=== PATIENT | male | born 1945 | race Caucasian/White ===

== ENCOUNTER → 2018-10-27 15:59 | Outpatient (CLI) | payer MEDICARE ==
[2010-07-09 00:42] VITALS: BMI 23.1
[~2018-10-27 15:59] MED LIST: JANTOVEN4 MG PO
== END | disposition home or self-care (01) ==
LOC: D.CT 15:59
PROVIDERS: ATTEND Family Medicine
DX: I73.9 Peripheral vascular disease, unspecified (principal)

== ENCOUNTER 2018-10-27 18:37 | Emergency (ER) | payer MEDICARE ==
[~2018-10-27] VITALS: Ht 188 cm; Wt 95.5 kg
[2018-10-27 18:41] VITALS: BP 157/86; Ht 188 cm; Wt 95.5 kg
[2018-10-27] MEDS ORDERED: JANTOVEN4 MG PO (18:44)
== END 2018-10-27 20:00 | disposition home or self-care (01) ==
LOC: D.ER 18:37
DX: Z00.00 Encounter for general adult medical examination without abnormal findings (principal)

== ENCOUNTER 2018-11-23 06:40 | Outpatient (CLI) | payer MEDICARE ==
[~2018-11-23] VITALS: Ht 185.4 cm; Wt 100.0 kg
--- NOTE | ~2018-11-23 | HEMODYNAMI ---
PATIENT:DAVID CABRERA MEDICAL RECORD: [id number] : 47 LOCATION:[facility] ADMISSION DATE: 11/23/18 Generatedon:11/23/201810:59 Patient name: DAVID CABRERA Patient #: [id number] SSN: DO B: 1945 Date of study: 11/23/2018 Page: Of Hemodynamic Procedure Report Patient Data Patient Demographics Procedure consent was obtained First Name: DAVID Gender: Male Last Name: DEBORAH : 1945 [facility] Initial: JOSE Age: 73 year(s) Patient #: [id number] Race: Unknown Additional ID: [id number] Contact details [address]: [address] [place] [address] [address] State: [place] City: [place] Zip code: [address] Past Medical History Allergies: No known allergies Admission Admission Data Admission Date: 11/23/2018 Admission Time: 6:40 Procedure Procedure Types Cath Procedure Peripheral Cath Diagnostic Procedure Abd/Extremity Extremities Right Lower Ext Arterio Procedure Description Procedure Date Procedure Date: 11/23/2018 Procedure Start Time: 10:00 Procedure End Time: 10:51 Procedure Staff Name Function Jose Ramon Lama RT Scrub Elmer Crawley MD Performing Physician Belinda Montgomery RN Nurse Teresa Carbajal RN Nurse JOSEPH GUILLAUME RT Monitor Procedure Data Cath Procedure Fluoroscopy Diagnostic fluoroscopy Total fluoroscopy Time: 6.6 time: 6.6 min min Diagnostic fluoroscopy Total fluoroscopy dose: 118 dose: 118 mGy mGy Contrast Material Contrast Material Type Amount (ml) Isovue 300 45 Entry Location Entry Primary Successful Side Size Upsize Upsize Entry Closure Succes sful Closure Location (Fr) 1 (Fr) 2 (Fr) Remarks Device Remarks Femoral Right 6 Fr Mynx artery Long Copier Field Service Technician 6Fr/7Fr Diagnostic catheters Device Type Used For End Catheter Placement DIAGNOSTIC IMT 5Fr Catheter ([id number]) Procedure Medications Medication Administration Route Dosage Heparin Flush Bag added to field 2 bags (1000units/500ml NS) Lidocaine 1% added to field 20 Fentanyl I.V. 50 mcg Versed I.V. 1 mg Heparin Bolus I.V. 5000 units Nitroglycerin IC/IA I.A. 300 mcg Versed I.V. 0.5 mg Fentanyl I.V. 25 mcg Versed I.V. 0.5 mg Fentanyl I.V. 25 mcg Hemodynamics Rest Heart Rate: 67 (bpm) Snapshots Pre Cath Intra NCS Post Cath Vital Signs Time Heart Resp SPO2 etCO2 NIBP (mmHg) Rhythm Pain Sedation Rate (ipm) (%) (mmHg) Status Level (bpm) 9:45:40 71 23 92 12.7 135/78(112) NSR 0 (11) 10(A) , No pain 9:49:52 65 20 91 0 130/83(106) NSR 0 (11) 10(A) , No pain 9:54:06 67 20 95 26.2 128/77(121) NSR 0 (11) 10(A) , No pain 9:58:20 65 13 95 26.2 136/72(114) NSR 0 (11) 8(A) , No pain 10:02:36 71 17 95 24.7 123/72(103) NSR 0 (11) 8(A) , No pain 10:06:45 69 17 95 27.7 122/74(101) NSR 0 (11) 8(A) , No pain 10:10:57 73 18 94 26.2 123/66(101) NSR 0 (11) 8(A) , No pain 10:15:09 69 18 94 28.5 123/72(104) NSR 0 (11) 8(A) , No pain 10:19:21 64 18 94 26.2 127/73(105) NSR 0 (11) 8(A) , No pain 10:23:35 72 18 94 25.5 111/69(90) NSR 0 (11) 8(A) , No pain 10:27:43 71 19 94 25.5 117/69(96) NSR 0 (11) 8(A) , No pain 10:31:53 71 15 94 28.5 112/66(93) NSR 0 (11) 8(A) , No pain 10:36:01 67 15 94 35.9 124/68(85) NSR 0 (11) 8(A) , No pain 10:40:13 70 19 94 25.5 118/68(100) NSR 0 (11) 8(A) , No pain 10:44:25 68 18 94 25.5 115/62(98) NSR 0 (11) 8(A) , No pain 10:48:39 74 17 18.7 104/55(83) NSR 0 (11) 8(A) , No pain Medications Time Medication Route Dose Verified Delivered Reason Notes Effec tiveness by by 9:52:11 Heparin Flush added 2 Elmer Payne used for Bag to bags Misbah Crawley procedure (1000units/500ml field MD OROZCO NS) 9:52:27 Lidocaine 1% added 20ml Elmer Payne used for to vial Misbah Misbah procedure field MD OROZCO 9:58:07 Fentanyl I.V. 50 Elmer Moore for mcg Misbah Hansoner RN sedation 9:59:02 Versed I.V. 1 mg Elmer Moore for Misbah Carbajal RN sedation 10:08:47 Heparin Bolus I.V. 5000 Elmer Moore used for units Misbahcynthia Hansoner customer support analyst 10:22:27 Nitroglycerin I.A. 300 Elmer Payne used for IC/IA mcg Misbahcynthia Crawley procedure MD OROZCO 10:24:47 Versed I.V. 0.5 Elmer Moore for mg Misbah Carbajal RN sedation 10:24:59 Fentanyl I.V. 25 Elmer Moore for mcg Misbah Carbajal RN sedation 10:40:01 Versed I.V. 0.5 Elmer Moore for mg Misbah Carbajal RN sedation 10:40:13 Fentanyl I.V. 25 Elmer Moore for mcg Misbah Carbajal RN sedation Procedure Log Time Note 9:14:23 Jose Ramon Lama RT (R) (CV) sent for patient. Start room use. 9:14:26 Time tracking: Regular hours (M-F 7:00 - 5:00) 9:14:34 Plan of Care:Hemodynamics will remain stable., Cardiac rhythm will remain stable., Comfort level will be maintained., Respiratory function will remain adequate., Patient/ family verbilizes understanding of procedure., Procedure tolerated without complication., Recovers from procedure without complications.. 9:21:15 Patient received from Outpatients to IR Alert and oriented. Nasreenferred to table in Supine position. 9:21:40 Signed procedure consent form obtained from patient. 9:21:46 Correct patient and procedure confirmed by team. 9:21:57 ECG and BP/O2 sat monitors applied to patient. 9:22:08 - 9:22:15 H&P Date Dictated: 11/23/2018 H&P Addendum completed by physician on day of procedure. (MUST COMPLETE FOR ALL OUTPATIENTS). 9:22:19 Pre-procedure instructions explained to patient. 9:22:20 Pre-op teaching completed and patient verbalized understanding. 9:22:47 Family in patients room. 9:22:50 Patient NPO since Midnight. 9:23:51 Patient allergic to No known allergies 9:23:54 Is the patient allergic to Iodine/contrast media? No. 9:23:57 Is patient on blood thinner?Yes. Coumadin last dose 11/19/18 9:25:07 Patient diabetic? No. 9:25:09 - 9:25:15 Previous problem with sedation/anesthesia? No ? 9:25:16 Snore? Yes 9:25:17 Sleep apnea? No 9:25:19 Deviated septum? No 9:25:20 Opens mouth fully? Yes 9:25:21 Sticks out tongue? Yes 9:25:33 Dentures? Yes In 9:25:34 - 9:27:53 IV patent on arrival in right hand with 0.45%NaCl at KVO. 9:28:16 Left groin area was prepped with chlora-prep and draped in sterile fashion 9:28:21 Sharps counted by scrub and verified by Rg 9:28:21 Alarms reviewed by Suzanne Light 9:28:25 - 9:44:38 Vital chart was started 9:44:39 Baseline sample Acquired. 9:44:44 Full Disclosure recording started 9:44:52 - 9:46:14 Use device set IR Diagnostic 9:46:18 Sterile Angiographic Pack opened to sterile field. 9:46:19 Bag Decanter (2001S) opened to sterile field. 9:46:20 Tegaderm 4 x 4 (1626W) opened to sterile field. 9:46:21 CHOICE PT Extra Support J 300cm guide wire ([id number]) opened to steril e field. 9:46:22 SHEATH 6FR Destination (RSR01) opened to sterile field. 9:46:47 A DIAGNOSTIC IMT 5Fr Catheter ([id number]) was advanced over the wire an d used for . 9:46:50 Micropuncture VSI 4FR kit opened to sterile field. 9:46:52 ALLAN 260 wire ([id number]) opened to sterile field. 9:46:52 BENTSON 145cm wire (Q52003) opened to sterile field. 9:46:53 SHEATH 5FR [place] (ODD766) opened to sterile field. 9:52:11 Heparin Flush Bag (1000units/500ml NS) 2 bags added to field was administered by Elmer Crawley MD; used for procedure; 9:52:27 Lidocaine 1% 20ml vial added to field was administered by Elmer baker MD; used for procedure; 9:52:41 - 9:54:59 Physician arrived 9:55:22 --------ALL STOP TIME OUT------ 9:55:32 Final Timeout: patient, procedure, and site verified with staff and physician. All members of the team are in agreement. 9:55:36 Left groin site verified by team. 9:55:40 Fire Safety Assessment: A--An alcohol-based skin anteseptic being used preoperatively., C--Open oxygen or nitrous oxide is being used. 9:55:53 2) 60-89 Mildly reduced kidney function, and other findings (as for stage 1) point to kidney disease. 9:58:07 Fentanyl 50 mcg I.V. was administered by Teresa Carbajal RN; for sedation; 9:58:24 Procedure started. 9:59:02 Versed 1 mg I.V. was administered by Teresa Carbajal RN; for sedation; 10:00:37 Local anesthetic to left femerol artery with Lidocaine 1% by Elmer Crawley MD.INITIAL ACCESS ONLY 10:04:08 Access obtained with 4Fr micropunture. 10:05:05 A 6 Fr Long sheath was inserted into the Right Femoral artery 10:08:47 CXI Catheter 90cm ([id number]) opened to sterile field. 10:08:47 Heparin Bolus 5000 units I.V. was administered by Teresa Carbajal RN; used for procedure; 10:08:57 [facility] .035 145 glide wire (X00146) opened to sterile field. 10:12:42 INFLATOR BasixTOUCH (VB0417) opened to sterile field. 10:17:33 Balloon Inflation number: 1 A CHOCOLATE 4.0 x 40 x 135 balloon ([id number]) was prepped and advanced, then inflated to 9 MARGARITA. 10:18:07 Hawkone Medium Atherectomy System (H1-M) opened to sterile field. 10:22:27 Nitroglycerin IC/IA 300 mcg I.A. was administered by Elmer Crawley MD; used for procedure; 10:24:47 Versed 0.5 mg I.V. was administered by Teresa Carbajal RN; for sedation; 10:24:59 Fentanyl 25 mcg I.V. was administered by Teresa Carbajal RN; for sedation; 10:29:24 SHEATH 6FR [place] (CGJ684) opened to sterile field. 10:29:35 Inflate balloon Inflation number: 1 A INPACT ADMIRAL 6X60 ([id number] ) was prepped and advanced, then inflated to 8 MARGARITA. 10:39:18 Inflate balloon Inflation number: 1 A CHOCOLATE 4.0 x 40 x 135 balloon ([id number]) was prepped and advanced, then inflated to 12 MARGARITA. 10:40:01 Versed 0.5 mg I.V. was administered by Teresa Carbajal RN; for sedation; 10:40:05 MYNX TIMBER FRAMER 6FR/7FR (CB2778) opened to sterile field. 10:40:13 Fentanyl 25 mcg I.V. was administered by Teresa Carbajal RN; for sedation; 10:43:28 Sheath removed intact; hemostasis achieved with Mynx Copier Field Service Technician 6Fr/7Fr to th e Right Femoral artery. 10:43:45 Fluoroscopy time 06.60 minutes. 10:44:05 Procedure ended.(Physican Out) 10:44:28 Fluoroscopy dose: 118 mGy 10:44:28 Flurop Dose total: 118 10:44:43 Contrast amount:Isovue 300 45ml. 10:44:46 Sharps counted by scrub and verified by R.N. 10:44:58 Insertion/operative site no bleeding no hematoma. 10:45:05 Post-op/insertion site Right Femoral artery dressed using a 4 x 4 and Tegaderm. 10:49:05 Post procedure instruction explained to patient.Patient verbalizes understanding. 10:51:05 Procedure and supply charges have been captured, reviewed, submitted an d are correct. 10:51:46 Vital chart was stopped 10:51:48 See physician's report for complete and final results. 10:51:54 Patient transfered to Outpatients with Bed. 10:51:58 Full Disclosure recording stopped 10:51:58 Procedure ended. Intervention Summary Intervention Notes Time ActionType Lesion and Equipment Used Action# Pressure Duration Attributes 10:17:33 Inflate Undefined1 CHOCOLATE 4.0 x 1 9 00:00 balloon 40 x 135 balloon ([id number]) 10:29:35 Inflate Mid INPACT ADMIRAL 1 8 00:01 balloon Femoral, 6X60 Right ([id number]) 10:39:18 Inflate Undefined2 CHOCOLATE 4.0 x 1 12 00:00 balloon 40 x 135 balloon ([id number]) Device Usage Item Name Manufacture Quantity Catalog Number Hospital Part Current Minimal Lot# / Charge Number Stock Stock Serial# Code Sterile Cardinal 1 [id number] [id number] 5 Angiographic Pack Health Bag Decanter Microtek 1 2001S 427977 99633 709648 5 () Medical Inc. Tegaderm 4 x 4 3M 1 1626W 625510 038252 142087 5 (1626W) CHOICE PT Extra Ramsey 1 [id number] 354648 225151 308664 5 [id number] Support J 300cm Scientific guide wire ([id number]) SHEATH 6FR Terumo 1 RSR01 254972 70597 142110 5 Destination (RSR01) DIAGNOSTIC IMT Ramsey 1 [id number] 382134 578336 17540 5 [id number] 5Fr Catheter Scientific ([id number]) Micropuncture VSI VSI VASCULAR 1 7266V 446474 057614 5 4FR kit SOLUTIONS BENTSON 145cm [employer] 1 D47842 927163 027980 5 wire (X76999) ALLAN 260 wire [facility] 1 N51855 173818 66395 160968 5 (V52190) SHEATH 5FR Terumo 1 ZNI767 445414 710116 384972 5 [place] (PXV903) CXI Catheter 90cm Cook [facility] 1 U11772 919875 840782 949521 5 (M02092) ROADRUNNER .035 [facility] 1 Y40003 245511 708251 220215 5 145 glide wire (K27609) INFLATOR Merit 1 OD4575 600834 736445 101567 5 [employer] [facility] (EP8082) CHOCOLATE 4.0 x Medtronic 2 [id number] 388057 64128 312713 5 40 x 135 balloon O ([id number]) TW Hawkone Medium Medtronic 1 H1-M 505530 5222408 5 5 [id number] Atherectomy System (H1-M) SHEATH 6FR Terumo 1 ZQU682 857606 861813 667063 40 [place] (DVH171) INPACT ADMIRAL Medtronic 1 [id number] 156902 050038 936495 1 6X60 ([id number]) MYNX TIMBER FRAMER 6FR/7FR Access 1 BL1506 648734 435022 5 ([id number]) Closure Signature Audit [place] Stage Time Signature Unsigned Intra-Procedure 11/23/2018 JOSEPH GUILLAUME RT JOSEPH GUILLAUME RT (R) 10:54:19 AM (R) 11/23/2018 10:56:12 AM Intra-Procedure 11/23/2018 JOSEPH GUILLAUME RT 10:59:32 AM (R) Signatures Monitor : JOSEPH GUILLAUME RT Signature : Date : Time : [facility] [address] [place] [address]
[2018-11-23 06:59] LABS: BASOPHILS 0.5 % (0-2); EOSINOPHILS 5.4 % (0-7); HEMATOCRIT 45.9 % (42.0-54.0); HEMOGLOBIN 15.9 g/dL (13.5-17.5); LYMPHOCYTES 21.4 % (15-50); MCH 31.8 pg (26.0-34.0); MCHC 34.6 g/dL (31.0-37.0); MCV 91.8 fL (80.0-100.0); MEAN PLATELET VOLUME 9.6 fL (7.4-10.4); MONOCYTES 13.6 % (2-11); NEUTROPHILS 58.1 % (40-80); PLATELET COUNT 225 10x3/uL (130-400); RDW 14.3 % (11.5-14.5); WBC 11.3 10x3/uL (4.8-10.8)
[2018-11-23 07:04] LABS: ANION GAP 12.8 mmol/L (8-16); CALCIUM 8.6 mg/dL (8.5-10.1); CARBON DIOXIDE 25.3 mmol/L (21.0-32.0); CREATININE - SERUM 1.1 mg/dL (0.6-1.3); POTASSIUM - SERUM 4.1 mmol/L (3.5-5.1)
[2018-11-23 07:19] LABS: APTT 29.4 SECONDS (22.8-39.4)
[2018-11-23 07:20] LABS: INR 1.08 (0.85-1.17); PROTIME 13.5 SECONDS (11.6-15.0)
[2018-11-23 07:42] VITALS: Ht 185.4 cm; Wt 100.0 kg
[2018-11-23] MEDS ORDERED: FLOMAX0.4 MG PO (07:55)
[2018-11-23] MEDS ORDERED: NORVASC5 MG PO (08:07)
[2018-11-23] MEDS ORDERED: LIPITOR20 MG PO (08:08)
--- NOTE | 2018-11-23 13:44 | NUR ---
VITAL SIGNS DOCUMENTED ON POST PROCEDURE SHEET.
--- NOTE | 2018-11-23 13:46 | NUR ---
RADIOLOGY REPORTS SMALL PNEUMOTHRAX, WILL RECHECK AT 1530. PT REPORTS SMALL PAIN AT INSERTION SITE THAT HAS DECREASED. VSS 178/72, 63, 18, 94% ON RA
--- NOTE | 2018-11-23 15:52 | NUR ---
1300 IV DC'D. CATHETER INTACT. NO BLEEDING AT SITE. BANDAID APPLIED
== END 2018-11-23 15:19 | disposition home or self-care (01) ==
LOC: D.SP 06:40 → D.RAD 09:00 → D.SP 15:19
PROVIDERS: ATTEND Radiology Diagnostic Radiology
DX: I73.9 Peripheral vascular disease, unspecified (principal)

== ENCOUNTER 2018-12-06 06:33 | Outpatient (CLI) | payer MEDICARE ==
[~2018-12-06] VITALS: Ht 185.4 cm; Wt 90.9 kg
--- NOTE | ~2018-12-06 | HEMODYNAMI ---
PATIENT:DAVID CABRERA MEDICAL RECORD: [id number] : 47 LOCATION:[facility] ADMISSION DATE: 12/06/18 Generatedon:12/06/201811:20 Patient name: DAVID CABRERA Patient #: [id number] SSN: DO B: 1945 Date of study: 12/06/2018 Page: Of Hemodynamic Procedure Report Patient Data Patient Demographics Procedure consent was obtained First Name: DAVID Gender: Male Last Name: DEBORAH : 1945 [facility] Initial: JOSE Age: 73 year(s) Patient #: [id number] Race: Unknown Additional ID: [id number] Contact details [address]: [address] [place] [address] [address] State: [place] City: [place] Zip code: [address] Past Medical History Allergies: No known allergies Admission Admission Data Admission Date: 12/06/2018 Admission Time: 6:33 Procedure Procedure Types Cath Procedure Peripheral Cath Diagnostic Procedure Abd/Extremity Extremities Left Lower Ext Arterio Procedure Description Procedure Date Procedure Date: 12/06/2018 Procedure Start Time: 9:40 Procedure Staff Name Function Jose Ramon Lama RT Scrub Elmer Crawley MD Performing Physician Belinda Montgomery RN Nurse Teresa Carbajal RN Nurse JOSEPH GUILLAUME RT Monitor Procedure Data Cath Procedure Fluoroscopy Diagnostic fluoroscopy Total fluoroscopy Time: 8.5 time: 8.5 min min Entry Location Entry Primary Successful Side Size Upsize Upsize Entry Closure Succes sful Closure Location (Fr) 1 (Fr) 2 (Fr) Remarks Device Remarks Femoral Right 5 Fr 6 Fr 6 Fr Mynx artery Long Short Veneer Redrier 6Fr/7Fr Diagnostic catheters Device Type Used For End Catheter Placement DIAGNOSTIC IMT 5Fr Catheter ([id number]) Procedure Medications Medication Administration Route Dosage Heparin Flush Bag added to field 2 bags (1000units/500ml NS) Lidocaine 1% added to field 20 Versed I.V. 1 mg Fentanyl I.V. 50 mcg Heparin Bolus I.V. 5000 units Nitroglycerin IC/IA I.A. 250 mcg Versed I.V. 0.5 mg Fentanyl I.V. 25 mcg Heparin Bolus I.V. 2000 units Versed I.V. 0.5 mg Nitroglycerin IC/IA I.A. 300 mcg Hemodynamics Rest Heart Rate: 58 (bpm) Snapshots Pre Cath Intra NCS Post Cath Vital Signs Time Heart Resp SPO2 etCO2 NIBP (mmHg) Rhythm Pain Sedation Rate (ipm) (%) (mmHg) Status Level (bpm) 9:08:40 60 21 94 24.7 133/70(110) NSR 0 (11) 10(A) , No pain 9:13:00 61 13 93 27 139/74(114) NSR 0 (11) 10(A) , No pain 9:17:18 60 20 93 27.8 146/77(114) NSR 0 (11) 10(A) , No pain 9:22:17 60 19 96 26.3 Measuring NSR 0 (11) 10(A) , No pain 9:22:23 60 20 96 25.5 142/76(117) NSR 0 (11) 10(A) , No pain 9:26:31 69 18 97 28.5 127/108(125) NSR 0 (11) 10(A) , No pain 9:31:30 61 19 96 26.2 Measuring NSR 0 (11) 10(A) , No pain 9:31:32 62 19 95 26.2 143/74(118) NSR 0 (11) 10(A) , No pain 9:35:53 63 16 94 24 136/74(112) NSR 0 (11) 8(A) , No pain 9:40:09 65 14 93 33 138/76(111) NSR 0 (11) 8(A) , No pain 9:44:27 67 16 93 30.8 133/72(105) NSR 0 (11) 8(A) , No pain 9:48:43 64 15 93 33.8 142/75(112) NSR 0 (11) 8(A) , No pain 9:53:03 69 15 93 30 129/70(105) NSR 0 (11) 8(A) , No pain 9:57:13 83 19 92 26.2 106/64(81) NSR 0 (11) 8(A) , No pain 10:01:23 63 15 91 24 90/55(73) NSR 0 (11) 8(A) , No pain 10:05:28 67 16 92 16.5 91/58(72) NSR 0 (11) 8(A) , No pain 10:09:30 73 15 92 21.7 106/68(80) NSR 0 (11) 8(A) , No pain 10:13:38 65 17 94 24.7 117/67(93) NSR 0 (11) 8(A) , No pain 10:17:48 72 17 94 26.2 114/68(90) NSR 0 (11) 8(A) , No pain 10:21:58 68 17 94 25.5 113/69(90) NSR 0 (11) 8(A) , No pain 10:26:05 69 20 94 24.7 122/71(95) NSR 0 (11) 8(A) , No pain 10:31:05 64 17 95 26.2 Measuring NSR 0 (11) 8(A) , No pain 10:31:09 61 17 94 24 123/75(104) NSR 0 (11) 8(A) , No pain Medications Time Medication Route Dose Verified Delivered Reason Notes Effec tiveness by by 9:25:19 Heparin Flush added 2 Elmer Payne used for Bag to bags Misbah Crawley procedure (1000units/500ml field MD OROZCO NS) 9:25:35 Lidocaine 1% added 20ml Elmer Payne used for to vial Misbah Crawley procedure field MD OROZCO 9:33:58 Versed I.V. 1 mg Elmer Moore for Misbah Carbajal RN sedation 9:34:11 Fentanyl I.V. 50 Elmer Moore for mcg Misbah Carbajal RN sedation 9:39:33 Heparin Bolus I.V. 5000 Elmer Moore used for units Misbah Carbajal leather finisher 9:50:42 Versed I.V. 0.5 Elmer Moore for mg Misbah Carbajal RN sedation 9:50:50 Fentanyl I.V. 25 Elmer Moore for mcg Misbah Carbajal RN sedation 9:57:31 Nitroglycerin I.A. 250 Elmer Payne used for IC/IA mcg Misbah Crawley procedure MD OROZCO 10:07:22 Heparin Bolus I.V. 1999 Elmer Moore used for units Misbah Carbajal RN procedure 10:12:02 Versed I.V. 0.5 Elmer Moore for mg Misbah Carbajal RN sedation 10:14:56 Nitroglycerin I.A. 300 Elmer Payne used for IC/IA mcg Misbah nuñez MD, MD Procedure Log Time Note 8:44:12 Jose Ramon Lama RT (R) (CV) sent for patient. Start room use. 8:44:14 Time tracking: Regular hours (M-F 7:00 - 5:00) 8:44:19 Plan of Care:Hemodynamics will remain stable., Cardiac rhythm will remain stable., Comfort level will be maintained., Respiratory function will remain adequate., Patient/ family verbilizes understanding of procedure., Procedure tolerated without complication., Recovers from procedure without complications.. 8:44:30 Patient received from Outpatients to IR Alert and oriented. Tansferred to table in Supine position. 8:44:34 Signed procedure consent form obtained from patient. 8:44:37 Correct patient and procedure confirmed by team. 8:44:38 - 8:44:39 - 8:44:47 H&P Date Dictated: 12/06/2018 H&P Addendum completed by physician on day of procedure. (MUST COMPLETE FOR ALL OUTPATIENTS). 8:44:49 Pre-procedure instructions explained to patient. 8:44:50 Pre-op teaching completed and patient verbalized understanding. 8:44:59 Family in waiting room. 8:45:02 Patient NPO since Midnight. 8:48:35 Patient allergic to No known allergies 8:48:39 Is the patient allergic to Iodine/contrast media? No. 8:48:40 Is patient on blood thinner?Yes. Warfarin last dose 11/30/18 8:49:15 Patient diabetic? No. 8:49:17 - 8:49:22 ----Pre-sedation anethsthesia assessment.---- 8:49:27 Previous problem with sedation/anesthesia? No ? 8:49:35 Snore? Yes 8:49:37 Sleep apnea? No 8:49:39 Deviated septum? No 8:49:40 Sticks out tongue? Yes 8:49:40 Opens mouth fully? Yes 8:49:43 Airway obstruction? No ? 8:50:09 Dentures? Yes in tightly 8:50:22 Pre procedure: left dorsailis pedis pulse Doppler 8:50:27 Pre procedure: right posterior tibial pulse Doppler 8:50:27 Pre procedure: right dorsailis pedis pulse Doppler 8:50:27 Pre procedure: right posterior tibial pulse Doppler 8:50:37 IV patent on arrival in left hand with 0.45%NaCl at [facility]. 8:51:12 - 8:52:25 Use device set IR Diagnostic 8:52:52 MICROPUNCTURE 4FR Cook ([id number]) opened to sterile field. 8:52:52 SHEATH 5FR Scammon (VWF159) opened to sterile field. 8:52:53 ALLAN 260 wire ([id number]) opened to sterile field. 8:52:53 BENTSON 145cm wire ([id number]) opened to sterile field. 8:52:56 Sterile Angiographic Pack opened to sterile field. 8:52:56 Bag Decanter (2002) opened to sterile field. 8:52:57 Tegaderm 4 x 4 (1626W) opened to sterile field. 8:55:28 - 8:55:42 Right groin area was prepped with chlora-prep and draped in sterile fashion 9:07:25 ECG and BP/O2 sat monitors applied to patient. 9:07:26 Vital chart was started 9::28 Baseline sample Acquired. 9::29 Full Disclosure recording started 9:07:32 - 9:07:51 SHEATH 6FR Destination (RSR01) opened to sterile field. 9:08:20 A DIAGNOSTIC IMT 5Fr Catheter ([id number]) opened to sterile field . 9:17:02 CHOICE PT Extra Support J 300cm guide wire ([id number]) opened to steril e field. 9:25:19 Heparin Flush Bag (1000units/500ml NS) 2 bags added to field was administered by Elmer Crawley MD; used for procedure; ::35 Lidocaine 1% 20ml vial added to field was administered by Elmer baker MD; used for procedure; 9:31:18 - 9:31:19 Physician arrived 9:31:48 --------ALL STOP TIME OUT------ :57 Final Timeout: patient, procedure, and site verified with staff and physician. All members of the team are in agreement. 9:31:59 Right groin site verified by team. 9:32:05 Fire Safety Assessment: A--An alcohol-based skin anteseptic being used preoperatively., C--Open oxygen or nitrous oxide is being used. 9:32:13 2) 60-89 Mildly reduced kidney function, and other findings (as for stage 1) point to kidney disease. 9:32:54 - 9:33:58 Versed 1 mg I.V. was administered by Teresa Carbajal RN; for sedation; 9:34:11 Fentanyl 50 mcg I.V. was administered by Teresa Carbajal RN; for sedation; 9:34:12 Procedure started. 9:39:33 Heparin Bolus 5000 units I.V. was administered by Teresa Carbajal RN; used for procedure; 9:40:47 Local anesthetic to right femoral artery with Lidocaine 1% by Elmer Crawley MD.INITIAL ACCESS ONLY 9:42:14 Access obtained with 4Fr micropunture. 9:45:35 A 5 Fr sheath was inserted into the Right Femoral artery 9:46:11 Sports.wsne Medium Atherectomy System (H1-M) opened to sterile field. 9:46:24 CXI SUPPORT .035 135 CM STR catheter ([id number]) opened to sterile field. 9:50:42 Versed 0.5 mg I.V. was administered by Teresa Carbajal RN; for sedation; 9:50:50 Fentanyl 25 mcg I.V. was administered by Teresa Carbajal RN; for sedation; 9:57:31 Nitroglycerin IC/IA 250 mcg I.A. was administered by Elmer Crawley MD; used for procedure; 10:02:14 INFLATOR BasixTOUCH (KF7339) opened to sterile field. 10:03:16 Inflate balloon Inflation number: 1 A IN.PACT Admiral 5 x 40 x 130 DCB Balloon ([id number]) was prepped and advanced across the Undefined1 then inflated) . 10:07:05 Inflate balloon Inflation number: 2 A INPACT ADMIRAL 6X60 ([id number] ) was prepped and advanced across the Undefined1 , then inflated . 10:07:22 Heparin Bolus 2000 units I.V. was administered by Teresa Carbajal RN; used for procedure; 10:11:25 SHEATH 6FR Scammon (ANQ065) opened to sterile field. 10:12:02 Versed 0.5 mg I.V. was administered by Teresa Carbajal RN; for sedation; 10:14:56 Nitroglycerin IC/IA 300 mcg I.A. was administered by Elmer Crawley MD; used for procedure; 10:20:33 MYNX CHEF KITCHEN MANAGER 6FR/7FR ([id number]) opened to sterile field. 10:21:05 Sheath removed intact; hemostasis achieved with Mynx Veneer Redrier 6Fr/7Fr to th e Right Femoral artery. 10:21:05 Sheath upsized to a 6 Fr Short. 10:21:05 Sheath upsized to a 6 Fr Long. 10:26:55 Procedure ended.(Physican Out) 10:27:12 Fluoroscopy time 08.50 minutes. 10:27:19 Dose Area Product 118 mGy/cm. 10:27:22 Sharps counted by scrub and verified by R.N. 10:27:25 Insertion/operative site no bleeding no hematoma. 10:27:36 Post right femoral artery:stable 10:27:46 Procedure and supply charges have been captured, reviewed, submitted an d are correct. 10:33:35 Vital chart was stopped 10:33:43 Patient transfered to Outpatients with Stretcher. 10:33:48 End room use (Document Last) 10:34:34 Full Disclosure recording stopped Intervention Summary Intervention Notes Time ActionType Lesion and Equipment Used Action# Pressure Duration Attributes 10:03:16 Inflate Undefined1 IN.PACT 1 0 00:00 balloon Admiral 5 x 40 x 130 DCB Balloon ([id number]) 10:07:05 Inflate Undefined1 INPACT ADMIRAL 2 0 00:00 balloon 6X60 ([id number]) Device Usage Item Name Manufacture Quantity Catalog Number Hospital Part Current M inimal Lot# / Charge Number Stock Stock Serial# Code SHEATH 5FR Terumo 1 PRV710 [id number] 630365 149258 5 Scammon (JMU512) MICROPUNCTURE Cook [facility] 1 G42577 119040 570719 669139 5 4FR Cook (Z72616) BENTSON 145cm [employer] 1 S87505 826576 266286 5 wire (Q04520) ALLAN 260 wire [facility] 1 E78435 056159 50064 828808 5 ([id number]) Bag Decanter Microtek 1 2001S 156876 73222 910473 5 (2001S) Medical Inc. Sterile Cardinal 1 [id number] 063128 539628 5 Angiographic Health Pack Tegaderm 4 x 4 3M 1 1626W 997659 871556 861119 5 (1626W) SHEATH 6FR Terumo 1 RSR01 237816 01700 258567 5 Destination (RSR01) DIAGNOSTIC IMT Oakwood 1 [id number] 168159 271080 72726 5 [id number] 5Fr Catheter Scientific ([id number]) CHOICE PT [employer]wood 1 [id number] 809801 603146 752461 5 [id number] Extra Support Scientific J 300cm guide wire ([id number]) Hawkone Medium Medtronic 1 H1-M 902624 30345143 5 [id number] Atherectomy System (H1-M) CXI SUPPORT [facility] 1 N91506 567778 464037 910118 5 [id number] .035 135 CM STR catheter (C53077) INFLATOR Merit 1 NV3259 346129 378499 928246 5 BasixK[employer]ers Medical (VT7317) IN.PACT Medtronic 1 [id number] 942092 237582 669979 5 Admiral 5 x 40 x 130 DCB Balloon ([id number]) INPACT ADMIRAL Medtronic 1 [id number] 546375 180221 292611 6 [id number] 6X60 ([id number]) SHEATH 6FR Terumo 1 RAZ466 262014 345761 456339 4 0 Scammon (MTY552) MYNX CHEF KITCHEN MANAGER Access 1 VN5062 253952 101170 5 6FR/7FR Closure (SG4022) Signature Audit [place] Stage Time Signature Unsigned Intra-Procedure 12/06/2018 JOSEPH PATEL (R) 10:34:26 AM (R) 12/06/2018 11:19:45 AM Intra-Procedure 12/06/2018 JOSEPH GUILLAUME RT 11:20:30 AM (R) Signatures Monitor : JOSEPH GUILLAUME RT Signature : Date : Time : [place] [id number] [facility] [place] [address]
[~2018-12-06 06:33] MED LIST changes: +FLOMAX0.4 MG PO; +LIPITOR20 MG PO; +NORVASC5 MG PO
[2018-12-06 07:04] LABS: BASOPHILS 0.5 % (0-2); EOSINOPHILS 4.6 % (0-7); HEMATOCRIT 45.4 % (42.0-54.0); HEMOGLOBIN 15.6 g/dL (13.5-17.5); IMMATURE GRANULOCYTES 0.8 % (0-5); LYMPHOCYTES 19.5 % (15-50); MCH 31.8 pg (26.0-34.0); MCHC 34.4 g/dL (31.0-37.0); MCV 92.7 fL (80.0-100.0); MEAN PLATELET VOLUME 9.3 fL (7.4-10.4); MONOCYTES 13.5 % (2-11); NEUTROPHILS 61.1 % (40-80); PLATELET COUNT 262 10x3/uL (130-400); RDW 14.3 % (11.5-14.5); WBC 12.9 10x3/uL (4.8-10.8)
[2018-12-06 07:07] LABS: APTT 30.8 SECONDS (22.8-39.4); INR 1.27 (0.85-1.17); PROTIME 15.3 SECONDS (11.6-15.0)
[2018-12-06 07:13] LABS: ANION GAP 13.3 mmol/L (8-16); CREATININE - SERUM 1.1 mg/dL (0.6-1.3); POTASSIUM - SERUM 4.3 mmol/L (3.5-5.1)
[2018-12-06 08:17] VITALS: BP 116/61; Ht 185.4 cm; Wt 90.9 kg
--- NOTE | 2018-12-06 15:22 | NUR ---
1045 FREQUENT VS DONE.
--- NOTE | 2018-12-06 15:24 | NUR ---
1445 IV REMOVED AND INSTRUCTIONS GIVEN TO PT AND FAMILY
== END 2018-12-06 15:00 | disposition home or self-care (01) ==
LOC: D.OPS 06:33 → D.RAD 06:33 → D.OPS 15:00
PROVIDERS: ATTEND Radiology Diagnostic Radiology
DX: I70.212 Atherosclerosis of native arteries of extremities with intermittent claudication, left leg (principal); Z01.812 Encounter for preprocedural laboratory examination